=== PATIENT | female | born 1980 | race Caucasian/White ===

== ENCOUNTER → 2017-04-25 | Outpatient (CLI) | payer OTHER ==
--- NOTE | 2017-04-26 09:31 | KCIC ---
Bilateral diagnostic digital mammograms: Reason for examination: Right breast lump. Baseline exam. The skin and nipples show no abnormalities. No abnormal axillary lymph nodes are seen. The breast parenchyma is heterogeneously dense. (Breast density: Category C.) There is suggestion of a subtle area of nodularity at the 10:00 position corresponding to the area of clinical concern. Further evaluation with ultrasound will follow. There are no calcifications or architectural distortion. Impression: Subtle area of nodularity at the 10:00 position corresponding to the area of clinical concern. Ultrasound to follow. Your patient's mammogram demonstrates that she has dense breast tissue (breast density category C or D), which could hide abnormalities, and if she has other risk factors for breast cancer that have been identified, she might benefit from supplemental screening tests that may be suggested by you as her ordering physician. Dense breast tissue, in and of itself, is a relatively common condition. Therefore, this information is not provided to cause undue concern, but rather to raise your awareness and to promote discussion with your patient regarding the presence of other risk factors, in addition to dense breast tissue. Your patient's mammography results will be sent to her. BI-RAD Category 0: Incomplete. Ultrasound to follow. Right breast ultrasound: Right whole breast ultrasound including evaluation of all 4 quadrants and the retroareolar and axillary regions of the right breast was performed. In the 10:00 position 7.5 cm from the nipple and corresponding to the area of clinical concern, there is a solid area of nodularity measuring approximately 2.6 x 0.6 cm in greatest radial dimensions without abnormal vascular flow. Further evaluation with ultrasound-guided biopsy is recommended. There are no other cystic or solid nodules. No abnormal appearing lymph nodes are seen in the axilla. IMPRESSION: 2.6 x 0.6 cm focus of nodularity corresponding to the area of clinical concern at the 10:00 position. Recommend further evaluation with ultrasound-guided biopsy. BI-RADS Category 4: Suspicious. The patient was notified of these findings at the time of the examination and the patient's physician was notified about these findings on 04/26/2017 at 9:30 AM. "Our facility is accredited by the [employer] Mammography [employer]." This patient's information has been entered into a reminder system for the patient to be notified with the results of her examination and a target date for the next mammogram. Electronically signed by: Cyndi Birmingham MD (04/26/2017 9:28 AM) [id number]
== END | disposition home or self-care (01) ==
LOC: KCIC MAMMO 12:45
PROVIDERS: ATTEND Obstetrics & Gynecology
DX: N63 Unspecified lump in breast (principal); R92.2 Inconclusive mammogram
CPT/HCPCS: 76641; G0204; 77066